=== PATIENT | female | born 1995 | race Two or more races ===

== ENCOUNTER 2019-08-10 23:34 | Emergency (ER) | payer SELFPAY ==
[2019-08-11] MEDS ORDERED: PHENYTOIN SODIUM INJ/PF 250 MG/5 ML SDV IV ONE (00:02)
--- NOTE | 2019-08-11 00:06 | ER Document Report ---
ED General - General Chief Complaint: Altered Mental Status Stated Complaint: AMS/POSSIBLE SEIZURE Time Seen by Provider: 08/10/19 23:59 Mode of Arrival: Medic Information source: Emergency Med Personnel Notes: 24-year-old Monegasque female arrives by EMS after family reports she was very lethargic and walking throughout the house in a disoriented manner and not eating or drinking any foods or fluids today. Patient upon arrival was oriented to first and last name but reports it is 2014 and when corrected she still maintained it was 2014. When asked who the president was she answers 2014. Just prior to arrival EMS reports that she did not know her name or where she was at and therefore there is some improvement as far since sensorium. TRAVEL OUTSIDE OF THE [place] IN LAST 30 DAYS: No - HPI Onset: This morning Onset/Duration: Sudden, Persistent, Worse Severity: Mild Pain Level: 1 Associated symptoms: None Exacerbated by: Denies Relieved by: Denies Similar symptoms previously: No Recently seen / treated by doctor: No - Related Data Allergies/Adverse Reactions: No Known Allergies Allergy (Unverified 03/04/15 17:21) Past Medical History - General Information source: Patient - Social History Smoking Status: Unknown if Ever Smoked Cigarette use (# per day): No Chew tobacco use (# tins/day): No Smoking Education Provided: No Frequency of alcohol use: None Drug Abuse: None Family History: Reviewed & Not Pertinent Patient has homicidal ideation: No - Immunizations Immunizations up to date: Yes Hx Diphtheria, Pertussis, Tetanus Vaccination: Yes Physical Exam - Vital signs Vitals: Resp 26 H 08/10/19 23:41 Interpretation: Normal - General General appearance: Alert - HEENT Head: Normocephalic, Atraumatic Eyes: Normal Pupils: PERRL Ears: Normal Sinus: Normal Nasal: Normal Mouth/Lips: Normal Pharynx: Other - Right lateral tongue is revealing for a 1/2 cm bite from molar apparently; patient was not aware of the injury to her right tongue. Neck: Normal - Respiratory Respiratory status: No respiratory distress Chest status: Nontender Breath sounds: Normal Chest palpation: Normal - Cardiovascular Rhythm: Regular Heart sounds: Normal auscultation Murmur: No - Abdominal Inspection: Normal Distension: No distension Bowel sounds: Normal Tenderness: Nontender Organomegaly: No organomegaly - Rectal Stool: Other - deferred - Genitourinary External exam: Other - deferred - Back Back: Normal - Extremities General upper extremity: Normal inspection General lower extremity: Normal inspection - Neurological Neuro grossly intact: Yes Cognition: Confused Orientation: Disoriented to time, Disoriented to events Sylvie Coma Scale Eye Opening: Spontaneous Sylvie Coma Scale Verbal: Oriented - to person only Sylvie Coma Scale Motor: Obeys Commands [place] Coma Scale Total: 15 Speech: Normal Cranial nerves: Normal Cerebellar coordination: Normal Motor strength normal: LUE, RUE, LLE, RLE Sensory: Normal Course - Vital Signs Vital signs: Temp Pulse Resp BP Pulse Ox 98.3 F 71 18 96/55 L 100 08/11/19 00:00 08/11/19 00:57 08/11/19 00:57 08/11/19 00:57 08/11/19 00:57 - Laboratory Result Diagrams: 08/10/19 23:48 08/10/19 23:48 Laboratory results interpreted by me: 08/10/19 08/11/19 23:48 00:41 Glucose 119 H Lactic Acid 2.5 H Total Bilirubin 1.4 H Acetaminophen < 10 L - Diagnostic Test Radiology reviewed: Reports reviewed Critical Care Note - Critical Care Note Total time excluding time spent on procedures (mins): 90 Comments: I discussed this case with Rashmi cabrera transfer team at [facility] and I spoke with Dr. Cleary at 0 110 who accepted the patient. --I also spoke with grandmother at [place] at phone #[phone]. I was unable to reach the mother from the number that was given to me and advised [place] to call any family members with any concerns about their relative. Discharge - Discharge Clinical Impression: Seizures Mental status alteration Qualifiers: Altered mental status type: unspecified Qualified Code(s): R41.82 - Altered mental status, unspecified Condition: Good Disposition: [facility] Additional Instructions: Transfer this patient to [facility] by ground unit
[2019-08-11 00:16] LABS: ABSOLUTE BASOPHILS # (AUTO) 0.1 10^3/uL (0.0-0.2); ABSOLUTE LYMPHOCYTES (AUTO) 1.4 10^3/uL (0.5-4.7); ABSOLUTE MONOCYTES (AUTO) 0.4 10^3/uL (0.1-1.4); ABSOLUTE NEUT (AUTO) 4.5 10^3/uL (1.7-8.2); BASOPHILS % (AUTO) 0.9 % (0-2); EOSINOPHILS % (AUTO) 0.5 % (0-6); HEMATOCRIT 44.6 % (36.0-47.0); HEMOGLOBIN 15.5 g/dL (12.0-15.5); LYMPHOCYTES % (AUTO) 21.6 % (13-45); MEAN CORPUSCULAR HEMOGLOBIN 30.8 pg (27.0-33.4); MEAN CORPUSCULAR HGB CONC 34.8 g/dL (32.0-36.0); MEAN CORPUSCULAR VOLUME 89 fl (80-97); MONOCYTES % (AUTO) 6.1 % (3-13); PLATELET COUNT 257 10^3/uL (150-450); RED BLOOD COUNT 5.04 10^6/uL (3.72-5.28); RED CELL DISTRIBUTION WIDTH 13.5 % (11.5-14.0); SEGMENTED NEUTROPHILS % (AUTO) 70.9 % (42-78); TOTAL CELLS COUNTED % (AUTO) 100 %; WHITE BLOOD COUNT 6.4 10^3/uL (4.0-10.5)
[2019-08-11 00:35] LABS: ALBUMIN 4.8 g/dL (3.5-5.0); ALKALINE PHOSPHATASE 75 U/L (38-126); ANION GAP 12 (5-19); ASPARTATE AMINO TRANSFERASE 24 U/L (14-36); BILIRUBIN,TOTAL 1.4 mg/dL (0.2-1.3); BLOOD UREA NITROGEN 12 mg/dL (7-20); CALCIUM 9.6 mg/dL (8.4-10.2); CARBON DIOXIDE 22 mmol/L (22-30); CHLORIDE 104 mmol/L (98-107); GLUCOSE 119 mg/dL (75-110); POTASSIUM 4.8 mmol/L (3.6-5.0); TOTAL PROTEIN 7.5 g/dL (6.3-8.2)
[2019-08-11 00:37] LABS: ACETAMINOPHEN < 10 ug/mL (10-30); ALCOHOL < 10 mg/dL (NONE DETECTED)
--- NOTE | 2019-08-11 00:53 | RADIOLOGY REPORT (SQ) ---
CLINICAL INDICATION: seizures. TECHNIQUE: A single portable AP view was obtained of the chest at 0025 hours. COMPARISON: None. FINDINGS: The cardiomediastinal silhouette is normal. The lungs are grossly clear. No evidence of effusion or pneumothorax. The visualized bones are unremarkable. IMPRESSION: No evidence of active intrathoracic disease.
--- NOTE | 2019-08-11 00:56 | RADIOLOGY REPORT (SQ) ---
INDICATION: seizures. Pain COMPARISON: None CORRELATION: None TECHNIQUE: Noncontrast spiral axial CT images were obtained from the skull base to vertex. Noncontrast spiral axial CT imaging through the cervical spine with multiplanar reconstructions. This exam was performed according to our departmental dose-optimization program, which includes automated exposure control, adjustment of the mA and/or kV according to patient size and/or use of iterative reconstruction techniques. FINDINGS: BRAIN: There is no evidence of acute intracranial hemorrhage, midline shift, mass effect or mass lesion. Johnson-white differentiation is normal. There is no evidence of acute large territory infarct. Ventricles and extracerebral spaces are within normal limits, for age. The visualized paranasal sinuses are grossly clear. The orbits and eyeballs are unremarkable. The mastoid air cells are clear. Skull base and calvarium appear intact. CERVICAL SPINE: No acute displaced fracture is identified of the cervical spine. Alignment is anatomic. No focal alignment abnormality is identified. The uncovertebral joints and facets are within normal limits, for age. Surrounding soft tissues of the neck are unremarkable. IMPRESSION: No acute intracranial process is identified. No acute bony injury is seen to the cervical spine.
[2019-08-11 02:52] LABS: APPEARANCE,URINE SLIGHTLY-CLOUDY; BILIRUBIN,URINE NEGATIVE (NEGATIVE); COLOR,URINE YELLOW; GLUCOSE, URINE NEGATIVE (NEGATIVE); KETONES,URINE NEGATIVE (NEGATIVE); LEUKOCYTE ESTERASE,URINE NEGATIVE (NEGATIVE); NITRITE,URINE POSITIVE (NEGATIVE); PROTEIN,URINE 30 mg/dL (NEGATIVE); URINE SPECIFIC GRAVITY 1.018; UROBILINOGEN,URINE NEGATIVE mg/dL (<2.0)
[2019-08-11 03:01] LABS: URINE AMPHETAMINES SCREEN NEGATIVE; URINE BARBITURATES SCREEN NEGATIVE; URINE BENZODIAZEPINES SCREEN NEGATIVE; URINE COCAINE SCREEN NEGATIVE; URINE METHADONE SCREEN NEGATIVE; URINE PHENCYCLIDINE SCREEN NEGATIVE
[2019-08-11 03:02] LABS: URINE MARIJUANA (THC) SCREEN UNCONFIRMED POSITIVE
--- NOTE | 2019-08-11 03:53 | ER Document Report ---
Doctor's Note Notes: 08/11/19 03:52 As needed orders placed for IV Ativan during transport to [facility] in case of seizures. Orders also placed for as needed IV Zofran in case of nausea or vomiting. These orders were handwritten on the friendly transport forms. Transport should be here within 15 to 20 minutes.
--- NOTE | 2019-08-11 04:16 | ER Document Report ---
Doctor's Note Notes: 08/11/19 04:15 Transport team has arrived to take patient to [facility]. This MD went to the bedside to see the patient prior to transport. Patient is alert and oriented x3 and appears to be in no acute distress at this time. Patient appears stable for transport.
[2019-08-11 04:29] VITALS: BP 103/67
== END 2019-08-11 04:30 | disposition short-term general hospital (02) ==
LOC: ER 23:34
DX: R56.9 Unspecified convulsions (principal); R41.82 Altered mental status, unspecified; R53.83 Other fatigue
CPT/HCPCS: 36415; 87040; 87070; 87880; 80307 ×3; 83605; 84703; 85025; 80053; 81001; 71045; 70450; 72125; J1165; 96365; 99291; 99292